=== PATIENT | female | born 1985 | race Caucasian/White ===

== ENCOUNTER 2016-12-10 18:42 | Outpatient (CLI) | payer BC ==
[~2016-12-10] VITALS: Ht 157.5 cm; Wt 90.9 kg
[~2016-12-10 18:42] MED LIST: CHOL10002 PO; FERR325T63 PO; MAGN500T PO; PNV1TABL4 PO; PREN1TAB52 PO
[2016-12-10] MEDS ORDERED: ASCO100T5 PO (19:47)
== END 2016-12-10 21:30 | disposition home or self-care (01) ==
LOC: LDOP 18:42
PROVIDERS: ATTEND Obstetrics & Gynecology
DX: O26.892 Other specified pregnancy related conditions, second trimester (principal); R11.0 Nausea; R25.2 Cramp and spasm; Z3A.26 26 weeks gestation of pregnancy
CPT/HCPCS: 36415; 59025; 81003; 82731; 87086; 99211; G0463

== ENCOUNTER 2017-01-16 10:24 | Outpatient (CLI) | payer BC ==
[~2017-01-16 10:24] MED LIST changes: +ASCO100T5 PO
== END 2017-01-16 12:01 | disposition home or self-care (01) ==
LOC: LDOP 10:24
PROVIDERS: ATTEND Obstetrics & Gynecology
DX: O26.892 Other specified pregnancy related conditions, second trimester (principal); R10.9 Unspecified abdominal pain; M54.9 Dorsalgia, unspecified; Z3A.25 25 weeks gestation of pregnancy
CPT/HCPCS: 59025; 99211; G0463

== ENCOUNTER 2017-02-12 06:23 | Outpatient (CLI) | payer BC ==
[~2017-02-12] VITALS: Ht 157.5 cm; Wt 98.6 kg
[2017-02-12] MEDS ORDERED: BETAMETHASONE 6 MG/ML, 5ML IM ONE ×2 (07:30→07:43)
[2017-02-12 07:59] VITALS: BP 113/61
== END 2017-02-12 09:39 | disposition home or self-care (01) ==
LOC: LDOP 06:23
PROVIDERS: ATTEND Obstetrics & Gynecology
DX: O26.893 Other specified pregnancy related conditions, third trimester (principal); O62.9 Abnormality of forces of labor, unspecified; R10.9 Unspecified abdominal pain; Z3A.36 36 weeks gestation of pregnancy
CPT/HCPCS: 59025; 81003; 87081; 87086; 96372; 99211; J0702; G0463

== ENCOUNTER 2017-03-02 03:20 | Inpatient (IN) | payer BC ==
[~2017-03-02] VITALS: Ht 165.1 cm; Wt 102.0 kg
[2017-03-02] MEDS ORDERED: D5%-LACTATED RINGERS 1,000 ML IV SCH (03:29)
[2017-03-02] MEDS ORDERED: OXYTOCIN 30U/ 0.9% NaCL 500ML 500 ML IV ONE (03:29)
[2017-03-02] MEDS ORDERED: LACTATED RINGERS 1,000 ML IV SCH (03:29)
[2017-03-02] MEDS ORDERED: ONDANSETRON 2MG/ML, 2ML IVPush PRN (03:30)
[2017-03-02] MEDS ORDERED: FENTANYL PF 100 MCG/2ML IV PRN (03:30)
[2017-03-02] MEDS ORDERED: TERBUTALINE 1 MG/ML, 1ML IVPush PRN (03:30)
[2017-03-02] MEDS ORDERED: CALCIUM CARBONATE 500 MG TAB.CHEW PO PRN (03:30)
[2017-03-02] MEDS ORDERED: FENTANYL PF 100 MCG/2ML IVPush PRN (03:30)
[2017-03-02] MEDS ORDERED: MISOPROSTOL 200 MCG TABLET ONE (03:36)
[2017-03-02] MEDS ORDERED: LIDOCAINE 1%, 20ML ONE (03:36)
[2017-03-02] MEDS ORDERED: OXYTOCIN 30U/ 0.9% NaCL 500ML 500 ML ONE (03:36)
[2017-03-02] MEDS ORDERED: NEWBORN KIT ONE (03:36)
[2017-03-02 04:40] VITALS: BP 111/72
[2017-03-02] MEDS ORDERED: IBUPROFEN 600 MG TABLET ONE ×2 (06:52→06:56)
[2017-03-02] MEDS: IBUPROFEN 600 MG TABLET PO PRN ×2 (07:00→20:36)
[2017-03-02] MEDS ORDERED: OXYTOCIN 30U/ 0.9% NaCL 500ML 500 ML IV SCH (07:27)
[2017-03-02] MEDS ORDERED: OXYcodone/APAP 5/325MG TABLET PO PRN ×2 (07:30)
[2017-03-02] MEDS ORDERED: IBUPROFEN 600 MG TABLET PO PRN (07:30)
[2017-03-02] MEDS ORDERED: GLYCERIN ADULT SUPP PR PRN (07:30)
[2017-03-02] MEDS ORDERED: MISOPROSTOL 200 MCG TABLET PR PRN (07:30)
[2017-03-02] MEDS ORDERED: ACETAMINOPHEN 325 MG TABLET ONE (08:10)
[2017-03-02] MEDS: ACETAMINOPHEN 325 MG TABLET PO PRN ×2 (08:11→21:44)
[2017-03-02 08:30] VITALS: BP 124/84
[2017-03-02] MEDS: PRENATAL VIT/IRON/FA 1 EACH TABLET PO SCH (09:00)
[2017-03-02] MEDS: DOCUSATE 100 MG CAPSULE PO PRN (20:35)
[2017-03-02 20:55] VITALS: BP 103/55
[2017-03-03 00:30] VITALS: BP 133/74
[2017-03-03] MEDS: IBUPROFEN 600 MG TABLET PO PRN ×3 (04:29→20:55)
[2017-03-03 04:30] VITALS: BP 109/72
[2017-03-03] MEDS: ACETAMINOPHEN 325 MG TABLET PO PRN (05:49)
[2017-03-03 07:00] VITALS: BP 106/57
[2017-03-03] MEDS: DOCUSATE 100 MG CAPSULE PO PRN ×2 (11:17→20:55)
[2017-03-03] MEDS: PRENATAL VIT/IRON/FA 1 EACH TABLET PO SCH (11:18)
[2017-03-03 20:45] VITALS: BP 129/83
[2017-03-04] MEDS ORDERED: OXYC-302 PO (00:25)
[2017-03-04] MEDS ORDERED: IBUP800T PO (00:26)
[2017-03-04] MEDS: IBUPROFEN 600 MG TABLET PO PRN (04:06)
[2017-03-04 08:10] VITALS: BP 124/62
== END 2017-03-04 11:55 | disposition home or self-care (01) | DRG 775 ==
LOC: LDOP 03:20 → LDIP 03:33 → 2NW 08:14
PROVIDERS: ADMIT Obstetrics & Gynecology; ATTEND Obstetrics & Gynecology
PROC: 10E0XZZ Delivery of Products of Conception, External Approach (ICD-10-PCS; principal; 2017-03-02)
PROC: 10907ZC Drainage of Amniotic Fluid, Therapeutic from Products of Conception, Via Natural or Artificial Opening (ICD-10-PCS; 2017-03-02)
DX: O77.0 Labor and delivery complicated by meconium in amniotic fluid (principal); Z37.0 Single live birth; Z3A.38 38 weeks gestation of pregnancy; O62.3 Precipitate labor; O69.81X0 Labor and delivery complicated by cord around neck, without compression, not applicable or unspecified; O09.513 Supervision of elderly primigravida, third trimester
CPT/HCPCS: 36415; 82803; 85025; 86850; 86900; J2590; J7120

== ENCOUNTER 2019-04-22 13:45 | Emergency (ER) | payer BC ==
[~2019-04-22] VITALS: Ht 157.5 cm; Wt 83.8 kg
[2019-04-22 16:39] VITALS: BP 150/109
== END 2019-04-22 17:45 | disposition home or self-care (01) ==
LOC: ED 17:15
DX: R10.31 Right lower quadrant pain (principal)
CPT/HCPCS: 36415; 74176; 76830; 80047; 80048; 81003; 82040; 84703; 85025; 99284